=== PATIENT | female | born 1975 | race Caucasian/White ===

== ENCOUNTER 2016-10-19 06:50 | Inpatient (IN) | payer OTHER ==
[~2016-10-19] VITALS: Ht 152.4 cm; Wt 56.2 kg
[~2016-10-19 06:50] MED LIST: BENADRYL ALLERG25 M1 PO; CALCIUM CITRAT950 MG PO; ESCITALOPRAM20 MG PO; LORAZEPAM1 MG PO; OXYCODONE5 M1 PO; PERCOCET 325 MG1 TA2 PO; PRAZOSIN HCL1 MG PO; VITAMIN C500 M3 PO; [UNRECOGNIZED DRUG - CODE] PO
[2016-10-19 07:50] LABS: ABSOLUTE BASOPHIL COUNT 0.1 /CUMM (0.0-0.2); ABSOLUTE EOSINOPHIL COUNT 0.1 /CUMM (0.0-0.7); ABSOLUTE GRANULOCYTE CT 4.1 /CUMM (1.4-6.5); ABSOLUTE LYMPH COUNT 1.9 /CUMM (1.2-3.4); ABSOLUTE MONOCYTE COUNT 0.4 /CUMM (0.10-0.60); BASOPHIL % 0.9 % (0.0-2.0); GRANULOCYTE % 62.6 % (42.2-75.2); HEMATOCRIT 39.4 % (37-47); MEAN CORPUSCULAR HGB 25.7 PG (27.0-31.0); MEAN CORPUSCULAR HGB CONC 32.1 G/DL (33.0-37.0); MEAN PLATELET VOLUME 8.4 FL (7.4-10.4); PLATELET COUNT 252 /CUMM (130-400); RBC DISTRIBUTION WIDTH 17.1 % (11.5-14.5); RED BLOOD CELL CT 4.92 /CUMM (4.20-5.40); WHITE BLOOD CELL COUNT 6.5 /CUMM (4.8-10.8)
--- NOTE | 2016-10-19 08:31 | ED CARDIAC/CP/PALPITATIONS ---
History of Present Illness General Chief Complaint: Chest Pain Stated Complaint: CHEST PAIN, L SHOULDER PAIN AND NECK PAIN Source: patient Exam Limitations: no limitations Vital Signs & Intake/Output Vital Signs & Intake/Output Vital Signs Date Time Temp Pulse Resp B/P B/P Pulse O2 O2 Flow FiO2 Mean Ox Delivery Rate 10/19 0936 97.5 71 16 125/65 98 Room Air 10/19 0840 97.1 70 18 139/68 99 Room Air 10/19 0742 98 Room Air 10/19 0712 98.7 92 18 111/73 100 Room Air Allergies Coded Allergies: NSAIDS (Non-Steroidal Anti-Inflamma (ULCERS 10/19/16) Triage Note: PT TO ED FOR L SIDED CHEST PRESSURE WOKE HER UP OUT OF SLEEP AT APPROX 6 AM, CHEST PAIN/PRESSURE FREE ON ARRIVAL TO ED. L SIDE OF CHEST TENDER TO PALPATION. PT REPORTING PAIN IS RELIEVED "WHEN I SIT WITH MY HEAD BETWEEN MY LEGS". DENIES ASSOCIATED SOB, ACOSTA, NAUSEA. STATING WHEN SHE WOKE UP "I FELT SWEATY". : No Patient currently breastfeeds: No HPI: 41 yo F presented with chest pain which started this morning at 6am and woke her up from sleep. The pain was progressive and radiating towards her left shoulder blade and right jaw but no radiating down the arms. It continued for 45 minutes before she left the house for the hospital. The pain was squeezing in nature and a scale of 8.5/10. She mentions that lying on her back and chest made the pain worse but leaning foward made it better. She did not experience any cough, dysnea or vomitting. The patient feels better now at the hospital and the pain is now 3/10. (AMELIA WALL,[facility]) Reconcile Medications Ascorbic Acid (Vitamin C) 500 MG TAB 1 TAB PO BID SUPPLEMENT (Reported) Calcium Citrate (Unknown Strength) TAB (Unknown Dose) PO BID SUPPLEMENT ( Reported) CHOLECALCIFEROL (VITAMIN D3) (Vitamin D3) 5,000 UNIT TABLET 1 TAB PO BID SUPPLEMENT (Reported) DIPHENHYDRAMINE HCL (Benadryl) 25 MG CAPSULE 1 CAP PO DAILY SUPPLEMENT ( Reported) Escitalopram Oxalate 20 MG TABLET 1.5 TAB PO DAILY MENTAL HEALTH (Reported) Fluoxetine HCl (Prozac) 20 MG CAPSULE 1 CAP PO DAILY DEPRESSION (Reported) Lorazepam 1 MG TABLET 4 TAB PO QHS ANXIETY/SLEEP (Reported) Lorazepam 1 MG TABLET 2 TAB PO TID ANXIETY (Reported) OXYCODONE HCL (Oxycodone) 5 MG CAP 1-2 TAB PO Q6P PRN PAIN OXYCODONE HCL/ACETAMINOPHEN (Percocet 5-325 MG Tablet) 325 MG/5 MG TAB 1 TAB PO Q8H PRN PAIN (Reported) Tramadol HCl 50 MG TABLET 1 TAB PO Q6P PRN PAIN (Reported) Zolpidem Tartrate 5 MG TABLET 1 TAB PO QPMP SLEEP (Reported) Zolpidem Tartrate 10 MG TABLET 1 TAB PO QPMP SLEEP (Reported) Triage Nurses Notes Reviewed? yes (PAU WALL,OSCAR Wharton) Past History Travel History Traveled to [place] past 21 day No Medical History Any Pertinent Medical History? 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 No (SAHYY CISNEROS MD) Review of Systems Review of Systems Constitutional: Reports: no symptoms. EENTM: Reports: no symptoms. Respiratory: Reports: no symptoms. Cardiovascular: Reports: chest pain. GI: Reports: diarrhea. Genitourinary: Reports: no symptoms. Musculoskeletal: Reports: neck pain. Skin: Reports: no symptoms. Neurological/Psychological: Reports: anxiety. Hematologic/Endocrine: Reports: no symptoms. Immunologic/Allergic: Reports: no symptoms. All Other Systems: Reviewed and Negative (SHAYY CISNEROS MD) Physical Exam Physical Exam General Appearance: well developed/nourished, alert, awake, anxious, mild distress Head: atraumatic, normal appearance Eyes: Bilateral: normal appearance. Ears, Nose, Throat: normal ENT inspection Neck: normal inspection Respiratory: normal breath sounds Cardiovascular: regular rate/rhythm Gastrointestinal: soft, non-tender, visible scars from previous surgery Back: normal inspection Extremities: normal inspection Neurologic/Psych: awake, alert Skin: normal color, warm/dry (SHAYY CISNEROS MD) Core Measures ACS in differential dx? Yes ASA ordered for poss ACS? Yes-ordered Severe Sepsis Present: No Septic Shock Present: No (PAU WALL,[facility]CAR Wharton) Progress Differential Diagnosis: AMI, aortic dissection, hyperthyroid, musculoskeletal pain, pneumothorax, pulmonary embolism, unstable angina Plan of Care: Orders Procedure Date/time Status Add-on Test (ER Only) 10/19 08 Active Add-on Test (ER Only) 10/19 08 Active Add-on Test (ER Only) 10/19 734 Active URINE DRUGS OF ABUSE 10/19 734 Active URINE 10/19 734 Active URINALYSIS 10/19 734 Active HUMAN BETA HCG SCREEN 10/20 731 Complete ETHANOL 10/20 731 Complete D-DIMER 10/20 731 Complete TROPONIN LEVEL 10/20 727 Complete COMPREHENSIVE METABOLIC PANEL 10/20 727 Complete CBC WITHOUT DIFFERENTIAL 10/20 727 Complete EKG 10/19 0652 Active Laboratory Tests 10/19/16 0732: Anion Gap 8, Estimated GFR > 60, BUN/Creatinine Ratio 10.0, Glucose 101 H, Calcium 9.9, Total Bilirubin 0.4, AST 20, ALT 37, Alkaline Phosphatase 80, Troponin I 0.13 *H, Total Protein 7.5, Albumin 4.8, Globulin 2.7, Albumin/ Globulin Ratio 1.8, Total Beta HCG NEGATIVE, D-Dimer High Sensitivty < 200, CBC w Diff NO MAN DIFF REQ, RBC 4.92, MCV 80.0 L, MCH 25.7 L, RDW 17.1 H, MPV 8.4 , Gran % 62.6, Lymphocytes % 28.7, Monocytes % 5.8, Eosinophils % 2.0, Basophils % 0.9, Absolute Granulocytes 4.1, Absolute Lymphocytes 1.9, Absolute Monocytes 0.4, Absolute Eosinophils 0.1, Absolute Basophils 0.1, PUBS MCHC 32.1 L, Serum Alcohol < 10.0 Diagnostic Imaging: Viewed by Me: Radiology Read, CT Scan. Discussed w/RAD: Radiology Read, CT Scan. Initial ED EKG: Sinus Tachycardia without any ST changes Rhythm Strip: normal sinus rhythm (SHAYY CISNEROS MD) Radiology Impression: PATIENT: RM GARCIA PRESENT AGE: 41 PATIENT ACCOUNT NO: [id number] : 75 LOCATION: [facility] ORDERING PHYSICIAN: SHAYY CISNEROS MD SERVICE DATE: 10/19/16 EXAM TYPE : CAT - CTA CHEST-PULMONARY EMBOLISM EXAMINATION: CTA CHEST PE STUDY CLINICAL INFORMATION: CHEST PAIN COMPARISON: No pertinent prior studies are available for comparison. TECHNIQUE: Prior to contrast administration, noncontrast localization images were obtained. After the administration of 50 mL of Omnipaque nonionic IV contrast, contiguous thin slice helical images were obtained through the thorax. Reformatted MIP images in the coronal and sagittal planes were obtained at the acquisition workstation. DLP: 414 mGy-cm. FINDINGS: The bolus timing on this study was acceptable for visualization of the pulmonary arterial tree. There are no intraluminal pulmonary arterial filling defects present to suggest pulmonary embolism. The lungs are clear. No focal consolidation or infiltrate identified. Incidental tiny subpleural 3 mm pulmonary nodule seen in the anterior aspect of the right upper lobe on axial image 15/62. No significant hilar or mediastinal adenopathy. There is no evidence of pleural effusion or pneumothorax. The heart is normal in size. No evidence of ventricular septal bowing or right heart strain. The mediastinum and great vessels are normal. There is no pericardial effusion or pericardial thickening. Limited evaluation of the upper abdominal viscera demonstrates patient be status post gastric bypass surgery and cholecystectomy. IMPRESSION: No evidence for central pulmonary emboli. No focal airspace disease. Tiny 3 mm subpleural pulmonary nodule incidentally noted. According to the UPDATED 2017 Fleischner Society recommendations, the advised follow-up imaging for solid nodules < 6 mm is: LOW RISK PATIENT: No routine follow-up. HIGH RISK PATIENT: Optional CT at 12 months. VTE: Negative DICTATED BY: SLY CHINO MD DATE /TIME DICTATED:10/19/16951 DERRICK BOAT RUNNER:DAYA DATE/TIME TRANSCRIBED: 10/19/16951 CONFIDENTIAL, DO NOT COPY WITHOUT APPROPRIATE AUTHORIZATION. < Electronically signed in Other Vendor System> SIGNED BY: SLY CHINO MD 10/19/16958 CXR Impression: PATIENT: RM GARCIA PRESENT AGE: 41 PATIENT ACCOUNT NO: [id number] : 75 LOCATION: [facility] ORDERING PHYSICIAN: SHAYY CISNEROS MD SERVICE DATE: 10/19/16 EXAM TYPE: RAD - XRY-PORTABLE CHEST XRAY EXAMINATION: XR PORTABLE CHEST CLINICAL INFORMATION: Chest pain COMPARISON: 11/29/2008 TECHNIQUE: Portable portable AP 85 degree upright view of the chest was obtained. FINDINGS: Cardiac and mediastinal silhouettes are normal in appearance. The lungs and pleural spaces are clear. IMPRESSION: Unremarkable examination. DICTATED BY: TAJ GUTIERREZ MD DATE/TIME DICTATED:10/19/16919 DERRICK BOAT RUNNER:DAYA DATE/TIME TRANSCRIBED:919 CONFIDENTIAL, DO NOT COPY WITHOUT APPROPRIATE AUTHORIZATION. < Electronically signed in Other Vendor System> SIGNED BY: TAJ GUTIERREZ MD 10/19/16923 (PAU WALL,OSCAR Wharton) Departure Departure Referrals: LAURA MORENO MD (PCP/Family) Departure Forms: Customer Survey General Discharge Information (SHAYY CISNEROS MD) Departure Disposition: STILL A PATIENT Condition: Guarded Clinical Impression Primary Impression: ACS (acute coronary syndrome) Admission Note Spoke With: FERNANDO CHACON MD, V. Documentation of Exam: Documentation of any treatments & extenuating circumstances including Concerns Regarding Discharge (functional status, medication knowledge or non-compliance, living conditions, etc.) that warrant an admission rather than observation: [ TELE ADMISSION, SERIAL ENZYMES, CARDIOLOGY EVAL, MAY NEED CENTRAL STERILE SUPPLY TECHNICIAN IF TROP RAISES AND/OR PAIN COMES BACK] Resident Co-Sign Statement Statement: ED Attending supervision documentation- [X] I saw and evaluated the patient. I have also reviewed all the pertinent lab results and diagnostic results. I agree with the findings and the plan of care as documented in the Resident's documentation. [X] I have reviewed the ED Record and agree with the Resident's documentation. [] Additions or exceptions (if any) to the Resident's note and plan are summarized below: [Patient was awoken with substernal sharp chest pain. Pubs felt that it was an anxiety attack she has been out of her lorazepam for 2 days. Patient states that she began to feel little bit better but still had chest pain so came into the emergency department. Shortly after arrival to the emergency department the chest pain went away however she still feels slightly short of breath. Patient does have a positive troponin. Her EKG shows sinus tachycardia with no ST-T changes. Her CT and she was negative for PE. Patient will be admitted to the hospital for further evaluation.] (PAU WALL,OSCAR Wharton) Critical Care Note Critical Care Note Critical Care Time: non-applicable (PAU WALL,OSCAR Wharton)
--- NOTE | 2016-10-19 09:24 | RADIOLOGY REPORT ---
EXAMINATION: XR PORTABLE CHEST CLINICAL INFORMATION: Chest pain COMPARISON: 11/29/2008 TECHNIQUE: Portable portable AP 85 degree upright view of the chest was obtained. FINDINGS: Cardiac and mediastinal silhouettes are normal in appearance. The lungs and pleural spaces are clear. IMPRESSION: Unremarkable examination.
[2016-10-19] MEDS ORDERED: TRAMADOL HCL50 M1 PO (09:51)
[2016-10-19] MEDS ORDERED: LORAZEPAM1 M1 PO (09:52)
[2016-10-19] MEDS ORDERED: ZOLPIDEM TARTRA10 M1 PO (09:53)
[2016-10-19] MEDS ORDERED: ZOLPIDEM TARTRAT5 M1 PO (09:53)
[2016-10-19] MEDS ORDERED: PROZAC20 M2 PO (09:54)
--- NOTE | 2016-10-19 09:59 | CT SCAN REPORT ---
EXAMINATION: CTA CHEST PE STUDY CLINICAL INFORMATION: CHEST PAIN COMPARISON: No pertinent prior studies are available for comparison. TECHNIQUE: Prior to contrast administration, noncontrast localization images were obtained. After the administration of 50 mL of Omnipaque nonionic IV contrast, contiguous thin slice helical images were obtained through the thorax. Reformatted MIP images in the coronal and sagittal planes were obtained at the acquisition workstation. DLP: 414 mGy-cm. FINDINGS: The bolus timing on this study was acceptable for visualization of the pulmonary arterial tree. There are no intraluminal pulmonary arterial filling defects present to suggest pulmonary embolism. The lungs are clear. No focal consolidation or infiltrate identified. Incidental tiny subpleural 3 mm pulmonary nodule seen in the anterior aspect of the right upper lobe on axial image 15/62. No significant hilar or mediastinal adenopathy. There is no evidence of pleural effusion or pneumothorax. The heart is normal in size. No evidence of ventricular septal bowing or right heart strain. The mediastinum and great vessels are normal. There is no pericardial effusion or pericardial thickening. Limited evaluation of the upper abdominal viscera demonstrates patient be status post gastric bypass surgery and cholecystectomy. IMPRESSION: No evidence for central pulmonary emboli. No focal airspace disease. Tiny 3 mm subpleural pulmonary nodule incidentally noted. According to the UPDATED 2017 Fleischner Society recommendations, the advised follow-up imaging for solid nodules < 6 mm is: LOW RISK PATIENT: No routine follow-up. HIGH RISK PATIENT: Optional CT at 12 months. VTE: Negative
[2016-10-19 10:53] LABS: PT 12.2 SEC (9.4-12.5); PTT 31 SEC (25-37)
--- NOTE | 2016-10-19 13:27 | ECHOCARDIOGRAM REPORT ---
RM GARCIA Age: 41 : 1975 Gender: F Exam Date: 10/19/2016 11:20 Exam Location: ER Ht (in): 60 Wt (lb): 155 BSA: 1.75 BP: 125 / 65 Ordering Physician: ALEXEI DENT MD Referring Physician: ALEXEI DENT MD Technologist: Agustina Saldaña RDCS Room Number: ER#3 Indications: CHEST PAIN Rhythm: Sinus Technical Quality: Good FINDINGS Left Ventricle Normal left ventricular size, wall thickness and systolic function with no obvious regional wall motion abnormalities. Normal left ventricular diastolic filling pattern for age. The ejection fraction is visually estimated at >65 %. Right Ventricle The right ventricle is normal in size and function. Right Atrium The right atrium is normal in size. Left Atrium The left atrium is normal in size. The interatrial septum is intact. Mitral Valve The mitral valve is normal in structure and function. There is trace mitral regurgitation. Aortic Valve Structurally normal aortic valve without significant sclerosis or stenosis. There is no aortic regurgitation. Tricuspid Valve The tricuspid valve is normal in structure and function. There is trace tricuspid regurgitation. Pulmonary artery systolic pressure is normal. Pulmonic Valve Structurally normal pulmonic valve. There is no pulmonic regurgitation. Pericardium Normal pericardium without effusion. No pleural effusion. Great Vessels Normal aortic root dimension. The aortic arch and great vessels are well seen and are normal. CONCLUSIONS No significant chamber abnormalities. No significant valve abnormalities. Normal transthoracic echocardiogram. Physiologic valvular regurgitation. Alexei Dent M.D. (Electronically Signed) Final Date: 19 October 2016 13:26 MEASUREMENTS (Male / Female) Normal Values 2D ECHO LV Diastolic Diameter PLAX 4.3 cm 4.2 - 5.9 / 3.9 - 5.3 cm LV Systolic Diameter PLAX 2.5 cm 2.1 - 4.0 cm LV Fractional Shortening PLAX 41.9 % 25 - 46 % LV Ejection Fraction 2D Teich 73.1 % IVS Diastolic Thickness 0.7 cm LVPW Diastolic Thickness 0.7 cm LV Relative Wall Thickness 0.3 RV Internal Dim ED PLAX 2.3 cm 1.9 - 3.8 cm LVOT Diameter 1.9 cm Aortic Root Diameter 2.8 cm LA Systolic Diameter LX 3.2 cm 3.0 - 4.0 / 2.7 - 3.8 cm LA Volume 25.0 cm 18 - 58 / 22 - 52 cm Ascending Aorta Diameter 2.6 cm DOPPLER AV Peak Velocity 145.0 cm/s AV Peak Gradient 8.4 mmHg AV Mean Velocity 99.1 cm/s AV Mean Gradient 5.0 mmHg AV Velocity Time Integral 29.0 cm LVOT Peak Velocity 114.0 cm/s LVOT Peak Gradient 5.2 mmHg LVOT Mean Velocity 77.0 cm/s LVOT Mean Gradient 3.0 mmHg LVOT Velocity Time Integral 22.3 cm LVOT Stroke Volume 63.2 cm AV Area Cont Eq vti 2.2 cm AV Area Cont Eq pk 2.2 cm MV Peak Velocity 108.0 cm/s MV Peak Gradient 4.7 mmHg MV Mean Velocity 63.5 cm/s MV Mean Gradient 2.0 mmHg Mitral E Point Velocity 80.9 cm/s Mitral A Point Velocity 62.2 cm/s Mitral E to A Ratio 1.3 MV PHT Velocity 114.0 cm/s MV Deceleration Hoke 485.0 cm/s MV Pressure Half Time 70.5 ms MV Area PHT 3.1 cm MV Deceleration Time 180.0 ms TR Peak Velocity 237.0 cm/s TR Peak Gradient 22.5 mmHg Right Atrial Pressure 5.0 mmHg Pulmonary Artery Systolic Pressu 27.5 mmHg Right Ventricular Systolic Press 27.5 mmHg PV Peak Velocity 132.0 cm/s PV Peak Gradient 7.0 mmHg PV Mean Velocity 85.9 cm/s PV Mean Gradient 4.0 mmHg PV Velocity Time Integral 27.5 cm LV E' Lateral Velocity 15.0 cm/s Mitral E to LV E' Lateral Ratio 5.4 LV E' Septal Velocity 9.7 cm/s Mitral E to LV E' Septal Ratio 8.4
--- NOTE | 2016-10-19 13:37 | History & Physical ---
SHANE WALL,[facility] 10/19/16 3327: General Information and HPI MD Statement: I have seen and personally examined RM CASTILLO and documented this H&P. The patient is a 41 year old F who presented with a patient stated chief complaint of [chest pain]. Source of Information: patient Exam Limitations: no limitations History of Present Illness: Ms. 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 She presents with sudden onset of exertional chest pain this morning at 6 AM. She was awakened by chest pain that was retrosternal this morning at 6 AM. The chest pain was squeezing in nature and felt like a muscle spasm and was 8-9/10 intensity. The chest pain radiated to her left shoulder blade and also to her right neck and right ear. The pain was associated with increased sweating, but she denied lightheadedness, palpitations, shortness of breath, nausea or vomiting. Her chest pain lasted for about 15 minutes and was aggravated by lying flat in bed but had no relieving factors. Her attempts to relieve the palpitations and chest pain by maneuvers that help her panic attacks, including putting her head between her knees, were unsuccessful. Her chest pain acutally started while she was driving herself to the ER, and by the time she arrived the ER, she was free of chest pain without needing any medications. She also had a headache that started after the chest pain subsided in the ER, however she denies blurring of vision and weakness or numbness in any limbs. She states that she has had some episode of palpitations and chest pain in the past associated with anxiety/panic attacks but none of them was this severe. She denies cough, wheeze, fevers, chills or malaise. She has noted a low appetite for the past couple of weeks and has nonbloody diarrhea with 2-3 episodes of loose stools daily for the past 1 week. She denies dysuria or hematuria. She states that she has been under increased stress over the past few weeks from her job and also an impending divorce this month. In the ER she was found to be in normal sinus rhythm. However, she had an elevated troponin to 0.13 and was started on IV heparin drip and given a 325mg dose of aspirin. Allergies/Medications Allergies: Coded Allergies: NSAIDS (Non-Steroidal Anti-Inflamma (ULCERS 10/19/16) Home Med list Ascorbic Acid (Vitamin C) 500 MG TAB 1 TAB PO BID SUPPLEMENT (Reported) Aspirin (Aspirin*) 81 MG TAB.CHEW 81 MG PO DAILY heart health Atorvastatin Calcium 80 MG TABLET 80 MG PO DAILY hyperlipidemia Calcium Citrate (Unknown Strength) TAB (Unknown Dose) PO BID SUPPLEMENT ( Reported) CHOLECALCIFEROL (VITAMIN D3) (Vitamin D3) 5,000 UNIT TABLET 1 TAB PO BID SUPPLEMENT (Reported) DIPHENHYDRAMINE HCL (Benadryl) 25 MG CAPSULE 1 CAP PO DAILY SUPPLEMENT ( Reported) Fluoxetine HCl (Prozac) 20 MG CAPSULE 1 CAP PO DAILY DEPRESSION (Reported) Heparin Sod,Porcine/0.9 % NaCl (Heparin-Ns 2,500 Units/500 Ml) 2,500 UNIT/500 ML (5 UNIT/ML) IV.SOLN 500 500 IV Q24 [facility] Lorazepam 1 MG TABLET 4 TAB PO QHS ANXIETY/SLEEP (Reported) Metoprolol Succinate 25 MG TAB 6.25 MG PO BID bp Ticagrelor (Brilinta) 90 MG TABLET 90 MG PO 0600 [facility] Tramadol HCl 50 MG TABLET 1 TAB PO Q6P PRN PAIN (Reported) Zolpidem Tartrate 5 MG TABLET 1 TAB PO QPMP SLEEP (Reported) Zolpidem Tartrate 10 MG TABLET 1 TAB PO QPMP SLEEP (Reported) Past History Travel History Traveled to [place] past 21 day No Medical History Neurological: NONE EENT: NONE Cardiovascular: NONE Respiratory: NONE Gastrointestinal: GASTRIC BYPASS WITH MALABSORPTION Cholecystectomy Hepatic: NONE Renal: NONE Musculoskeletal: HIP DYSPLASIA Psychiatric: anxiety, PTSD PAINC ATTACKS Endocrine: GESTATIONAL DIABETES Blood Disorders: B12 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 Home Who Do You Live With? parent (mother) Services at Home: None Primary Language: Bengali Smoking Status: Former Smoker (1 PPD from 14 yrs to 35 yrs) ETOH Use: occasional use Illicit Drug Use: denies illicit drug use Functional Ability ADLs Independent: dressing, eating, toileting, bathing. Ambulation: independent IADLs Independent: shopping, housework, finances, food prep, telephone, transportation , medication admin. Employment History Employment Employed Profession/Employer [employer] Review of Systems Review of Systems Constitutional: Reports: see HPI. Denies: chills, fever, malaise. Exam & Diagnostic Data Last 24 Hrs of Vital Signs/I&O Vital Signs Date Time Temp Pulse Resp B/P B/P Pulse O2 O2 Flow FiO2 Mean Ox Delivery Rate 10/19 1403 98.3 82 20 146/78 97 Room Air 10/19 1200 97.8 74 16 146/79 98 Room Air 10/19 0936 97.5 71 16 125/65 98 Room Air 10/19 0840 97.1 70 18 139/68 99 Room Air 10/19 0742 98 Room Air 10/19 0712 98.7 92 18 111/73 100 Room Air Intake & Output 10/19 1600 10/19 0800 10/19 0000 Intake Total 0 Output Total Balance 0 Intake, Oral 0 Patient 155 lb Weight Weight Reported by Patient Measurement Method Physical Exam General Appearance Alert, Oriented X3, Cooperative, No Acute Distress Skin No Rashes Skin Temp/Moisture Exam: Warm/Dry Sepsis Skin Exam (color): Normal for Ethnicity HEENT Atraumatic, PERRLA, EOMI, Mucous Membr. moist/pink Neck Supple, No JVD, No thryomegaly, +2 Carotid Pulse wo Bruit Lymphatic Cervical nl Cardiovascular Regular Rate, Normal S1, Normal S2, No Murmurs Lungs Clear to Auscultation, Normal Air Movement Abdomen Normal Bowel Sounds, Soft, No Tenderness, No Hepatospenomegaly Neurological Normal Speech, Strength at 5/5 X4 Ext, Normal Tone Extremities No Edema, Normal Pulses, No Tenderness/Swelling Vascular Normal Pulses, Pulses Symmetrical (normal dorsalis pedis) Diagnostic Data EKG Results Normal sinus rhythm heart rate 85 bpm. QTC 447 ms CXR Results Clear lung nelson. No cardiomegaly Assessment/Plan Assessment: Ms. Castillo is a 41-year-old woman with a past medical history of anxiety, PTSD and panic attacks, malabsorption from bariatric surgery with Donal-en-Y 2011 , hip dysplasia on chronic pain medication, and vitamin B-12 deficiency (Her history of GERD, STEVAN, gestational diabetes all resolved after weight loss surgery). She presents with sudden onset of retrosternal chest pain this morning at 6 AM that lasted about 15 minutes and spontaneously resolved without any medical intervention. She does not have a significant family history of cardiac disease or prominent risk factors (although she was morbidly obese prior to her bariatric surgery, and also had gestational diabetes). Her EKG showed normal sinus rhythm and a CT angiogram of her chest showed no pulmonary embolism. She was started on IV heparin drip in the ER because of suspicion of an acute coronary syndrome. Her echocardiogram revealed no wall motion abnormalities. Despite her unremarkable cardiac family history, her typical symptomatology coupled with a troponin leak of 0.13 is concerning for an acute coronary syndrome or non-ST elevation myocardial infarction, so she would need to be admitted on telemetry and evaluated and treated for such. The patient will continue her home medications for anxiety and panic attacks. We will trend her troponins and EKGs and monitor her for recurrence of chest pain. We will keep her nothing by mouth after midnight in case she needs a cardiac catheterization in the morning. Problem list 1. Chest pain concerning for acute coronary syndrome/NSTEMI 2. History of panic attacks 3. Anxiety 4. History of malabsorption status post gastric Donal-en-Y surgery 5. Hip dysplasia with chronic hip pain Plan 1. Chest pain concerning for acute coronary syndrome/NSTEMI * Admit to telemetry * Serial EKGs and troponins 3 * Follow-up official echocardiogram report * Continue IV heparin drip as per ACS protocol * Check and on for serum magnesium, TSH, free T4, hemoglobin A1c * Cardiology recommendations appreciated * Loading dose of brillinta 180 mg stat and then 90 mg twice a day * Continue aspirin 81 mg daily (patient received aspirin 325 mg once in the ER) * Start low dose PO metoprolol 6.25 mg BID * Check fasting lipid profile tomorrow morning * Start high-intensity Lipitor 80 mg daily in the morning after lipid profile * Monitor vital signs closely and watch for recurrence of chest pain * Start sublingual nitroglycerin if chest pains reocurrs * NPO from midnight for possible cardiac cath in the morning 2. History of panic attacks * Start lorazepam 2 mg 3 times a day when necessary for anxiety or panic attacks * Continue by mouth Prozac 20 mg daily for anxiety 3. Anxiety * Start lorazepam 2 mg 3 times a day when necessary for anxiety or panic attacks * Continue by mouth Prozac 20 mg daily for anxiety 4. History of malabsorption status post gastric Donal-en-Y surgery * Continue supplementation with by mouth vitamins C, by mouth vitamin D, and by mouth multivitamins with B12 5. Hip dysplasia with chronic hip pain * Start by mouth Tylenol 650 mg every 6 hrs when necessary for mild pain. By mouth Tramadol 50 mg every 6 hrs when necessary for moderate pain 6. DVT prophylaxis * IV heparin drip 7. CODE STATUS * Full code As Ranked By This Provider Problem List: 1. ACS (acute coronary syndrome) Core Measures/Miscellaneous Acute Coronary Syndrome ACS Diagnosis: Yes Date of most recent Echo 10/19/16 Last Known EF % 65 CASSY/ARB For EF <40% No (EF >40%) No CASSY/ARB d/t Medical Contraindication ASA W/I 24hr of admit Yes Beta-Roxanne W/I 24hrs Yes LDL assessed W/I 24 hrs Yes Currently on Statin No No Statin d/t LIPID PROFILE PENDING Comment RECEIVED STATIN on admission Cerebrovascular Accident CVA/TIA Diagnosis: No Congestive Heart Failure CHF Diagnosis: No VTE (View Protocol) VTE Risk Factors: Acute medical illness, Age > 40 No [facility] VTE prophylaxis d/t: No contraindications No VTE Pharm Prophylaxis d/t: No contraindications VTE Diagnosis: No VTE Type: NONE VTE Confirmed by (Test): NONE Sepsis (View Protocol) Severe Sepsis Present: No Septic Shock Septic Shock Present: No Miscellaneous Documentation Attending Case Discussed With: FERNANDO CHACON MD, V. Primary Care Physician: LAURA MORENO MD Patient sees these Specialists None Level of Patient Care: Telemetry FERNANDO CHACON MD 10/19/16 1428: Attending MD Review Statement Attending Statement Attending MD Statement: examined this patient, discuss w/resident/PA/CAUSTIC PUMP OPERATOR, agreed w/resident/PA/CAUSTIC PUMP OPERATOR Attending Assessment/Plan: This patient is a 41-year-old female who has been generally healthy except for obesity in the past which resolved after gastric bypass surgery. She has significant anxiety and panic attacks. She does not have hypertension, diabetes , family history of heart disease, dyslipidemia. She is a lifelong nonsmoker and nondrinker. The patient describes occasional midsternal chest pain not necessarily exertional. These tend to be fairly brief. This morning the patient developed mid to left-sided chest pressure at approximately 6 AM which showed a awakened her from sleep. This lasted 45 minutes and did not resolve so she came to the hospital where her discomfort gradually improved and finally disappeared. Her EKG was unremarkable but her initial troponin was 0.13. Her echocardiogram has already been done and is within normal limits with no regional wall motion abnormalities. Her physical examination was essentially completely normal. The rest of her routine labs are normal. Lipid profile was not done but will be ordered for the a.m. The patient is a 41-year-old female with minimal risk factors who has developed chest pain that sounded fairly typical. She did not have any EKG changes or any wall motion abnormalities on her echo but her initial troponin was elevated at 0.13. It appears that she is having a non-ST elevation myocardial infarction. We will of course trend her troponins and EKGs and depending on the results consider her for further evaluation including cardiac catheterization. For now we will put her on usual cardiac regimen including full anticoagulation. I recommend loading with Brilinta and adding a small dose of metoprolol for completeness.
[2016-10-19 14:03] VITALS: BP 146/78
--- NOTE | 2016-10-19 16:27 | Admission Certification ---
Admission Certification Certification Statement - As attending physician, I certify that at the time of - admission, based on clinical presentation, severity of - symptoms, need for further diagnostic testing and - therapeutic interventions, and risk of adverse outcomes - without in-hospital treatment, in my clinical assessment, - this patient requires an acute hospital stay for a minimum - of two nights or longer. I have also considered psychsocial - factors such as support system, advanced age, financial - issues, cognitive issues, and failed out-patient treatments, - past re-admission history, safety of patient, and lack of - compliance as applicable. Specific rationale supporting this admission is: Chest pain and positive troponin
[2016-10-19 16:31] VITALS: BP 130/78
[2016-10-19 20:09] LABS: PTT 67 SEC (25-37)
[2016-10-19 22:21] VITALS: BP 98/66
--- NOTE | 2016-10-19 22:58 | Discharge Summary ---
Visit Information Visit Dates Admission Date: 10/19/16 Discharge Date: 10/20/2016 Hospital Course Course Attending Physician: OSWALDO WALL,FERNANDO Feliciano Primary Care Physician: JOSH WALL,[facility] Course: Ms. Castillo is a 41-year-old woman with a past medical history of anxiety, PTSD and panic attacks, malabsorption from bariatric surgery with Donal-en-Y gastric bypass in 2011, hip dysplasia on chronic pain medication, and vitamin B- 12 deficiency (Her history of GERD, STEVAN, gestational diabetes all resolved after her weight loss surgery). She presented with sudden onset of exertional chest pain on the morning of presentation at 6 AM. She was awakened by retrosternal chest pain on the morning of presentation at 6 AM. The chest pain was squeezing in nature and felt like a muscle spasm and was 8-9/10 intensity. The chest pain radiated to her left shoulder blade and to her right neck and right ear and lasted about 15 minutes intensity with aggravation by lying flat. The pain was associated with increased sweating but she denied lightheadedness, palpitations, shortness of breath, nausea or vomiting. In the ER she was free of chest pain without any medications administered. She also had a headache that started after the chest pain subsided in the ER, however she denied blurring of vision and weakness or numbness in any limbs. She had experienced previous episodes of palpitations during her anxiety/panic attacks in the past, but none of them what this severe. Vital signs on presentation in the ER: Temp 98.7 F, P 92 bpm, RR 18/min, BP 111/ 73 mmhg, PO2 100% on room air. Physical exam in the ER was as follows: General Appearance Alert, Oriented X3, Cooperative, No Acute Distress Skin No Rashes Skin Temp/Moisture Exam: Warm/Dry Sepsis Skin Exam (color): Normal for Ethnicity HEENT Atraumatic, PERRLA, EOMI, Mucous Membr. moist/pink Neck Supple, No JVD, No thryomegaly, +2 Carotid Pulse wo Bruit Lymphatic Cervical nl Cardiovascular Regular Rate, Normal S1, Normal S2, No Murmurs Lungs Clear to Auscultation, Normal Air Movement Abdomen Normal Bowel Sounds, Soft, No Tenderness, No Hepatospenomegaly Neurological Normal Speech, Strength at 5/5 X4 Ext, Normal Tone Extremities No Edema, Normal Pulses, No Tenderness/Swelling Vascular Normal Pulses, Pulses Symmetrical (normal dorsalis pedis) In the ER she was found to be in normal sinus rhythm. However she had an elevated troponin to 0.13. A CT angiogram of her chest showed no pulmonary embolus. She was admitted to the telemetry service for chest pain and a NSTEMI. She received PO aspirin 325 mg stat. She was started on an IV heparin drip. Her echocardiogram revealed no wall motion abnormalities. She was given Brillinta loading dose and continued on 90 mg BID. She was also continued on aspirin 81 mg daily. She was also started on metoprolol 6.25 mg daily. Her home medications for anxiety and panic attacks, prozac and ativan as needed were continued. Her troponin karis to 3.63 ng/ml and trended down to 1.58. Her symptoms resolved by morning. Patient is being transferred to [facility] for cardiac catheterization. Problem list 1. Acute coronary syndrome/NSTEMI 2. History of panic attacks 3. Anxiety 4. History of malabsorption status post gastric Donal-en-Y surgery 5. Hip dysplasia with chronic hip pain Allergies: Coded Allergies: NSAIDS (Non-Steroidal Anti-Inflamma (ULCERS 10/19/16) Disposition Summary Disposition Principal Diagnosis: 1. Acute coronary syndrome/NSTEMI Additional Diagnosis: 2. History of panic attacks 3. Anxiety 4. History of malabsorption status post gastric Donal-en-Y surgery 5. Hip dysplasia with chronic hip pain Discharge Disposition: other [facility] hospital Discharge Instructions General Discharge Information Code Status: Full Code Patient's Diet: heart healthy Patient's Activity: as tolerated Follow-Up Instructions/Appts: Please f/u with your malt loader after discharge. Please continue to take the medications as prescribed. Medications at Discharge Discharge Medications: Continue taking these medications: Lorazepam (Lorazepam) 1 MG TABLET 4 Tablet ORAL TAKE AT BEDTIME Qty = 180 Comments: PT REPORTS MED IS WRITTEN TO TAKE 1 TAB FOUR TIMES & 2 TABS QHS; PT REPORTS TAKING 4 TABS QHS AND 2 TABS PRN PANIC ATTACKS/ANXIETY Ascorbic Acid (Vitamin C) 500 MG TAB 1 Tablet ORAL TWICE DAILY CHOLECALCIFEROL (VITAMIN D3) (Vitamin D3) 5,000 UNIT TABLET 1 Tablet ORAL TWICE DAILY Calcium Citrate (Calcium Citrate) (Unknown Strength) TAB Unknown Dose ORAL TWICE DAILY DIPHENHYDRAMINE HCL (Benadryl) 25 MG CAPSULE 1 Capsule ORAL DAILY Tramadol HCl (Tramadol HCl) 50 MG TABLET 1 Tablet ORAL EVERY SIX HOURS NEEDED as needed for PAIN Qty = 120 Comments: Last Taken:09/20/16 Time:6:28A.M Zolpidem Tartrate (Zolpidem Tartrate) 5 MG TABLET 1 Tablet ORAL Every night as needed Qty = 30 Comments: Last Taken:NOT GIVEN THIS ADMISSION Time: Zolpidem Tartrate (Zolpidem Tartrate) 10 MG TABLET 1 Tablet ORAL Every night as needed Qty = 30 Comments: NOT GIVEN THIS ADMISSION Fluoxetine HCl (Prozac) 20 MG CAPSULE 1 Capsule ORAL DAILY Comments: Last Taken:10/20/16 Time:9:26A.M Start taking the following new medications: Ticagrelor (Brilinta) 90 MG TABLET 90 Milligram ORAL 0600 Days = 30 No Refills Comments: Last Taken:10/20/16 Time:6:19A.M Atorvastatin Calcium (Atorvastatin Calcium) 80 MG TABLET 80 Milligram ORAL DAILY Days = 30 No Refills Comments: Last Taken:10/20/16 Time:9:28A.M Metoprolol Succinate (Metoprolol Succinate) 25 MG TAB 6.25 Milligram ORAL TWICE DAILY Days = 30 No Refills Comments: Last Taken:10/20/16 Time:9:28A.M Aspirin (Aspirin*) 81 MG TAB.CHEW 81 Milligram ORAL DAILY Days = 30 No Refills Comments: Last Taken:10/20/16 Time:9:28A.M Heparin Sod,Porcine/0.9 % NaCl (Heparin-Ns 2,500 Units/500 Ml) 2,500 UNIT/500 ML (5 UNIT/ML) IV.SOLN 500 500 INTRAVEN EVERY 24 HOURS Days = 7 No Refills Comments: Last Taken:10/20/16 Time: Copies To: FERNANDO DENT MD, V. Attending MD Review Statement Documenting Attending: FERNANDO DENT MD, V. Other Findings: I agree with the summary as dictated by the resident. Shari Dent M.D.
--- NOTE | 2016-10-20 06:49 | PN- Housestaff ---
Subjective Follow-up For: 1. Chest pain might be due to acute coronary syndrome/NSTEMI Review of Systems Constitutional: Denies: no symptoms. Objective Last 24 Hrs of Vital Signs/I&O Vital Signs Date Time Temp Pulse Resp B/P B/P Pulse O2 O2 Flow FiO2 Mean Ox Delivery Rate 10/20 09 77 116/70 10/20 0720 97.8 77 18 102/78 98 Room Air 10/19 2221 98.3 66 16 98/66 98 Room Air 10/19 2215 68 98/66 Intake & Output 10/20 1600 10/20 0800 10/20 0000 Intake Total Output Total Balance Patient 124 lb Weight Weight Reported by Patient Measurement Method Physical Exam General Appearance: Alert, Oriented X3, Cooperative, No Acute Distress Assessment/Plan Assessment: Ms. Castillo is a 41-year-old woman with a past medical history of anxiety, PTSD and panic attacks, she presented yesterday to the ED with sudden onset of chest pain which lasted for around an hour in the morning . It was aggravated by lying flat, on admission to the ER shows found to be on normal sinus rhythm and had high troponin of 0,13, which trended high , her second troponin was 3.62.A CT angiogram of her chest showed no pulmonary embolus. She was admitted to the telemetry service for chest pain and a NSTEMI. 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 ACS (acute coronary syndrome) 2. History of panic attacks 3. History of Donal-en-Y gastric bypass 4. Panic attack 5. Hip dysplasia Pain Ratin Pain Location: n/a Pain Goal: Remain pain free Pain Plan: acetaminophen tramadol Tomorrow's Labs & Rationales: no labs as the patient is being transferred for cardiac cath DVT/Prophylaxis: pharmacological
[2016-10-20 07:20] VITALS: BP 102/78
[2016-10-20 08:12] LABS: ABSOLUTE BASOPHIL COUNT 0.1 /CUMM (0.0-0.2); ABSOLUTE EOSINOPHIL COUNT 0.2 /CUMM (0.0-0.7); ABSOLUTE GRANULOCYTE CT 3.3 /CUMM (1.4-6.5); ABSOLUTE LYMPH COUNT 1.9 /CUMM (1.2-3.4); ABSOLUTE MONOCYTE COUNT 0.4 /CUMM (0.10-0.60); BASOPHIL % 1.1 % (0.0-2.0); EOSINOPHIL % 3.2 % (0-5); GRANULOCYTE % 56.2 % (42.2-75.2); HEMATOCRIT 37.3 % (37-47); MEAN CORPUSCULAR HGB CONC 32.8 G/DL (33.0-37.0); MEAN CORPUSCULAR VOLUME 79.2 FL (81.0-99.0); MEAN PLATELET VOLUME 8.9 FL (7.4-10.4); PLATELET COUNT 231 /CUMM (130-400); RBC DISTRIBUTION WIDTH 17.3 % (11.5-14.5); RED BLOOD CELL CT 4.71 /CUMM (4.20-5.40); WHITE BLOOD CELL COUNT 5.9 /CUMM (4.8-10.8)
[2016-10-20 08:24] LABS: PTT 64 SEC (25-37)
--- NOTE | 2016-10-20 09:16 | Patient Discharge Instructions ---
Discharge Instructions General Discharge Information You were seen/treated for: chest pain Special Instructions: please f/u with your cardologist after discharge. Diet Continue normal diet: No Recommended Diet: Heart Healthy Activity Full Activity/No Limits: Yes (as tolerated) Acute Coronary Syndrome Inclusion Criteria At DC or during hospital stay patient has or had the following: ACS DIAGNOSIS Yes Discharge Core Measures Meds if any: Prescribed or Continued at Discharge Meds if any: NOT Prescribed or Continued at Discharge Congestive Heart Failure Inclusion Criteria At DC or during hospital stay patient has or had the following: CHF DIAGNOSIS No Discharge Core Measures Meds if any: Prescribed or Continued at Discharge Meds if any: NOT Prescribed or Continued at Discharge Cerebrovascular accident Inclusion Criteria At DC or during hospital stay patient has or had the following: CVA/TIA Diagnosis No Discharge Core Measures Meds if any: Prescribed or Continued at Discharge Meds if any: NOT Prescribed or Continued at Discharge Venous thromboembolism Inclusion Criteria VTE Diagnosis No VTE Type NONE VTE Confirmed by (Test) NONE Discharge Core Measures - Per Current guidelines, there needs to be overlap - treatment for the first 5 days of Warfarin therapy. - If discharged on Warfarin prior to 5 days of - overlap therapy, the patient will need to be - assessed for post discharge needs including - *Post discharge parental anticoagulation - *Warfarin and/or parental anticoagulation education - *Follow up date to check INR post discharge At least 5 days overlap therapy as Inpatient No Meds if any: Prescribed or Continued at Discharge Note: Overlap Therapy is Warfarin and Anticoagulant Meds if any: NOT Prescribed or Continued at Discharge
[2016-10-20] MEDS ORDERED: BRILINTA90 M1 PO (09:20)
[2016-10-20] MEDS ORDERED: HEPARIN NS IV (09:20)
[2016-10-20] MEDS ORDERED: ATORVASTATIN CA80 M1 PO (09:20)
[2016-10-20] MEDS ORDERED: [UNRECOGNIZED DRUG - OTHER] IV (09:20)
[2016-10-20] MEDS ORDERED: ASPIRIN81 M4 PO (09:20)
[2016-10-20] MEDS ORDERED: METOPROLOL SUCC25 M1 PO (09:20)
--- NOTE | 2016-10-20 09:20 | PN- Cardiology ---
Subjective Subjective: The patient is feeling well. She has actually been ambulatory. She remains on IV heparin. She is reluctant to have cardiac catheterization but is willing to have it if it were absolutely necessary. Her troponin peaked at 3.63. Her EKG remains normal. Her LDL is elevated at 142. She's had occasional PVCs on the monitor. She has been started on Brilinta and remains on heparin and aspirin. Objective Vital Signs and I&Os Vital Signs Date Time Temp Pulse Resp B/P B/P Pulse O2 O2 Flow FiO2 Mean Ox Delivery Rate 10/20 0720 97.8 77 18 102/78 98 Room Air 07 2221 98.3 66 16 98/66 98 Room Air 07/ 2215 68 98/66 07/ 1633 74 130/78 / 1631 75 130/78 / 1403 98.3 82 20 146/78 97 Room Air / 1200 97.8 74 16 146/79 98 Room Air / 0936 97.5 71 16 125/65 98 Room Air Intake & Output 10/20 1600 10/20 0800 10/20 0000 10/19 1600 10/19 0800 10/19 0000 Intake Total 0 Output Total Balance 0 Intake, Oral 0 Patient 124 lb 155 lb Weight Weight Reported by Patient Reported by Patient Measurement Method Physical Exam: She is in no distress HEENT exam normal Chest clear Heart regular rhythm no murmurs Current Medications: Current Medications Sig/Ileana Start time Last Medication Dose Route Stop Time Status Admin Acetaminophen 650 MG Q6P PRN 10/19 1430 AC PO Ascorbic Acid 500 MG BID 10/19 2200 AC 10/19 PO 2206 Aspirin 81 MG DAILY 10/20 1000 AC PO Atorvastatin Calcium 80 MG DAILY 10/20 1000 AC PO Calcium/Vitamin D 500 MG DAILY 10/19 1417 AC PO Cyanocobalamin 1,000 MCG DAILY 10/19 1359 AC PO Diphenhydramine HCl 25 MG DAILY NEEDED PRN 10/19 1430 AC PO Fluoxetine HCl 20 MG DAILY 10/19 1347 AC PO Fluticasone 2 SPRAY DAILY PRN 10/19 1845 AC 10/19 Propionate ALYSON 1905 Heparin Sodium 4,000 UNIT ONCE ONE 10/19 1045 DC 10/19 (Porcine) IV 10/19 1046 1049 Heparin Sodium 0 .STK-MED ONE 10/19 1045 DC (Porcine) .ROUTE Heparin Sodium/ 25,000 UNIT Q24H 10/19 1045 AC 10/19 Dextrose IV 1049 Dextrose/Water 500 ML Lorazepam 2 MG TIDPRN PRN 10/19 1415 AC 10/19 PO 1813 Metoprolol Tartrate 6.25 MG BID 10/19 1506 AC 10/19 PO 2215 Multivitamins 1 TAB DAILY 10/20 1000 AC PO Ticagrelor 90 MG 1800 10/20 1800 AC PO Ticagrelor 90 MG 0600 10/20 0600 AC 10/20 PO 0619 Ticagrelor 180 MG ONCE ONE 10/19 1515 DC 10/19 PO 10/19 1516 1609 Tramadol HCl 50 MG Q6P PRN 10/19 1400 AC 10/20 PO 0628 Zolpidem Tartrate 15 MG AT BEDTIME PRN 10/19 1415 AC PO Results Last 48 Hrs of Labs/Mics: Laboratory Tests 10/20/16 0620: Anion Gap 7, Estimated GFR > 60, BUN/Creatinine Ratio 13.3, Troponin I 1.58 *H, Triglycerides 136, Cholesterol 225 H, LDL Cholesterol, Calc 142 H, HDL Cholesterol 56, Cholesterol/HDL Ratio 4, APTT 64 H, CBC w Diff NO MAN DIFF REQ, RBC 4.71, MCV 79.2 L, MCH 26.0 L, RDW 17.3 H, MPV 8.9, Gran % 56.2, Lymphocytes % 32.4, Monocytes % 7.1, Eosinophils % 3.2, Basophils % 1.1, Absolute Granulocytes 3.3, Absolute Lymphocytes 1.9, Absolute Monocytes 0.4, Absolute Eosinophils 0.2, Absolute Basophils 0.1, PUBS MCHC 32.8 L 10/19/16 2035: Troponin I 3.62 *H 10/19/16 1845: APTT 67 H 10/19/16 1425: Troponin I 3.63 *H 10/19/16 1040: Urine Opiates Screen 162.00, Methadone Screen 82, Barbiturate Screen < 60, Ur Phencyclidine Scrn 15.00, Amphetamines Screen < 100, U Benzodiazepines Scrn < 85 , Urine Cocaine Screen < 50, Urine Cannabis Screen < 5.00, Urine Color YEL, Urine Clarity CLEAR, Urine pH 7.5, Ur Specific [place] <= 1.005, Urine Protein NEG, Urine Ketones NEG, Urine Nitrite NEG, Urine Bilirubin NEG, Urine Urobilinogen 0.2, Ur Leukocyte Esterase NEG, Ur Microscopic EXAM NOT REQUIRED, Urine Hemoglobin NEG, Urine Glucose NEG, Urine Test NEGATIVE 10/19/16 0732: Anion Gap 8, Estimated GFR > 60, BUN/Creatinine Ratio 10.0, Glucose 101 H, Hemoglobin A1c Pending, Calcium 9.9, Magnesium 1.9, Total Bilirubin 0.4, AST 20, ALT 37, Alkaline Phosphatase 80, Troponin I 0.13 *H, Total Protein 7.5, Albumin 4.8, Globulin 2.7, Albumin/Globulin Ratio 1.8, TSH 1.670, Free T4 1.00, Total Beta HCG NEGATIVE, PT 12.2, INR 1.16, APTT 31, D-Dimer High Sensitivty < 200, CBC w Diff NO MAN DIFF REQ, RBC 4.92, MCV 80.0 L, MCH 25.7 L, RDW 17.1 H, MPV 8.4, Gran % 62.6, Lymphocytes % 28.7, Monocytes % 5.8, Eosinophils % 2.0, Basophils % 0.9, Absolute Granulocytes 4.1, Absolute Lymphocytes 1.9, Absolute Monocytes 0.4, Absolute Eosinophils 0.1, Absolute Basophils 0.1, PUBS MCHC 32.1 L, Serum Alcohol < 10.0 Recent Imaging Studies: CONCLUSIONS No significant chamber abnormalities. No significant valve abnormalities. Normal transthoracic echocardiogram. Physiologic valvular regurgitation. Alexei Dent M.D. (Electronically Signed) Final Date: 19 October 2016 13:26 Assessment/Plan Assessment/Plan This patient has had a non-ST elevation myocardial infarction manifested by typical chest pain and typical troponin curve. Despite this her EKG and echocardiogram are normal. She has minimal risk factors probably the major one being previous morbid obesity, status post gastric bypass. She also has an elevated LDL of 142. Although the patient is reluctant to have cardiac catheterization done, I have convinced her that this is absolutely necessary to clarify her coronary anatomy. It is conceivable that she might have coronary artery anomaly as opposed to routine arteriosclerotic coronary artery disease, although the latter is still most likely. She has been arranged to be transferred to [facility] care of Dr. Tamayo. Continue telemetry? Not applicable
[2016-10-20 09:26] VITALS: BP 116/70
== END 2016-10-20 11:34 | disposition short-term general hospital (02) | DRG 281 ==
LOC: ERH 06:50 → ERHI 10:21 → 1NO 10:21 → ENRESERV 11:00 → ENTRNSPT 12:46 → 1NO 13:48 → CMPTRNSPT 10-20 07:01 → 1NO 10-20 11:34
PROVIDERS: Internal Medicine; ADMIT Internal Medicine
DX: I21.4 Non-ST elevation (NSTEMI) myocardial infarction (principal); K91.2 Postsurgical malabsorption, not elsewhere classified; F41.0 Panic disorder [episodic paroxysmal anxiety]; Z98.84 Bariatric surgery status; Q65.89 Other specified congenital deformities of hip; G89.29 Other chronic pain; M25.559 Pain in unspecified hip; F43.10 Post-traumatic stress disorder, unspecified; Z79.899 Other long term (current) drug therapy; E53.8 Deficiency of other specified B group vitamins; K21.9 Gastro-esophageal reflux disease without esophagitis; G47.33 Obstructive sleep apnea (adult) (pediatric); R63.0 Anorexia; Z68.24 Body mass index [BMI] 24.0-24.9, adult
CPT/HCPCS: 1NP; 36415; 80307; 81003; 81025; 82436; 93005; 93010; 93306; G0480; J1644; J3490; J7060

== ENCOUNTER 2017-08-20 11:15 | Emergency (ER) | payer OTHER ==
[~2017-08-20] VITALS: Ht 152.4 cm; Wt 74.5 kg
[~2017-08-20 11:15] MED LIST changes: +ASPIRIN81 M4 PO; +ATORVASTATIN CA80 M1 PO; +BRILINTA90 M1 PO; +HEPARIN NS IV; +LORAZEPAM1 M1 PO; +METOPROLOL SUCC25 M1 PO; +PROZAC20 M2 PO; +TRAMADOL HCL50 M1 PO; +VITAMIN D31000 UNI2 PO; +ZOLPIDEM TARTRA10 M1 PO; +ZOLPIDEM TARTRAT5 M1 PO; -[UNRECOGNIZED DRUG - CODE] PO; +[UNRECOGNIZED DRUG - OTHER] IV
--- NOTE | 2017-08-20 11:54 | ED GENERAL ADULT ---
History of Present Illness General Chief Complaint: Abdominal Pain/Flank Pain Stated Complaint: R SIDED ABD PAIN Source: patient Exam Limitations: no limitations Vital Signs & Intake/Output Vital Signs & Intake/Output Vital Signs Date Time Temp Pulse Resp B/P B/P Pulse O2 O2 Flow FiO2 Mean Ox Delivery Rate 08/20 1612 98.0 51 18 100/60 97 Room Air 08/20 1454 97.4 60 18 102/57 98 Room Air 08/20 1131 97.7 80 18 106/69 98 Room Air Allergies Coded Allergies: NSAIDS (Non-Steroidal Anti-Inflamma (ULCERS 10/19/16) Reconcile Medications Aspirin (Aspirin*) 81 MG TAB.CHEW 81 MG PO DAILY heart health Cholecalciferol (Vitamin D3) 1,000 UNIT TABLET 1 TAB PO DAILY VITAMIN SUPPORT (Reported) Fluvoxamine Maleate 100 MG TABLET 2 TAB PO QPM MENTAL HEALTH (Reported) Levocetirizine Dihydrochloride (Xyzal) 5 MG TABLET 1 TAB PO QPM ALLERGIES ( Reported) Lorazepam 1 MG TABLET 4 TAB PO QPM SLEEP (Reported) Metoprolol Tartrate 25 MG TABLET 0.5 TAB PO QPM HEART (Reported) Tramadol HCl 50 MG TABLET 1 TAB PO Q6P PRN PAIN (Reported) Zolpidem Tartrate 5 MG TABLET 1 TAB PO QPMP PRN SLEEP (Reported) Zolpidem Tartrate 10 MG TABLET 1 TAB PO QPMP PRN SLEEP (Reported) Triage Note: PT TO ER C/C RLQ PAIN X 2 WEEKS, STARTED OUT DULL, NOW GETTING WORSE. DENIES N/V/D. DENIES URINARY S/S. AFEBRILE Triage Nurses Notes Reviewed? yes Onset: Abrupt Duration: day(s): Timing: recent history : No Patient currently breastfeeds: No HPI: 08/20/17 4:07 PM 42-year-old female presents to the emergency department complaining of right lower quadrant abdominal pain. She says she was in her usual state of health until approximately 3 days ago when she developed progressive right lower quadrant abdominal pain. She denies vomiting or fever. She was concerned about her appendix. She has a history of hip dysplasia. She says that this pain is different. She denies any possibility of . Labs and CT scan are unremarkable. I specifically reviewed the CAT scan results with the radiologist. No evidence of ovarian inflammation, free fluid or ovarian torsion. The patient is presently comfortable in the emergency department at 4: 08 PM. She is therefore being discharged to follow-up with her primary care doctor this week. Past History Travel History Traveled to [place] past 21 day No Medical History Any Pertinent Medical History? 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 No Review of Systems Review of Systems Constitutional: Denies: fever. EENTM: Denies: double vision. Respiratory: Denies: short of breath. Cardiovascular: Denies: chest pain. GI: Reports: abdominal pain. Genitourinary: Reports: no symptoms. Musculoskeletal: Reports: no symptoms. Skin: Reports: no symptoms. Neurological/Psychological: Denies: no symptoms. Hematologic/Endocrine: Reports: no symptoms. Immunologic/Allergic: Reports: no symptoms. Physical Exam Physical Exam General Appearance: well developed/nourished, alert, awake, anxious, mild distress Head: atraumatic, normal appearance Eyes: Bilateral: normal appearance, PERRL, EOMI. Ears, Nose, Throat: normal pharynx, normal ENT inspection Neck: normal inspection, supple, full range of motion Respiratory: normal breath sounds, chest non-tender, no respiratory distress Cardiovascular: regular rate/rhythm Peripheral Pulses: 4+ radial (R), 4+ radial (L) Gastrointestinal: soft, tenderness Back: normal inspection Extremities: normal inspection Neurologic/Psych: no motor/sensory deficits, awake, alert, oriented x 3 Skin: intact, normal color, warm/dry Core Measures ACS in differential dx? No CVA/TIA Diagnosis: No Sepsis Present: No Sepsis Focused Exam Completed? No Progress Differential Diagnoses I considered the following diagnoses in my evaluation of the patient: [ Appendicitis, ovarian cyst, ovarian torsion, colitis, pyelonephritis, ureterolithiasis] Plan of Care: Orders Procedure Date/time Status COMPREHENSIVE METABOLIC PANEL 08/20 1214 Complete CBC WITHOUT DIFFERENTIAL 08/20 1214 Complete URINE 08/20 1132 Complete URINALYSIS 08/20 113 Complete Laboratory Tests 08/20/17 1247: Anion Gap 8, Estimated GFR > 60, BUN/Creatinine Ratio 22.9, Glucose 86, Calcium 9.2, Total Bilirubin 0.3, AST 31, ALT 23, Alkaline Phosphatase 61, Total Protein 6.4, Albumin 3.8, Globulin 2.6, Albumin/Globulin Ratio 1.5, CBC w Diff NO MAN DIFF REQ, RBC 4.24, MCV 80.8 L, MCH 27.1, MCHC 33.5, RDW 16.1 H, MPV 8.3, Gran % 41.2 L, Lymphocytes % 42.8, Monocytes % 11.5 H, Eosinophils % 3.1, Basophils % 1.4, Absolute Granulocytes 3.3, Absolute Lymphocytes 3.4, Absolute Monocytes 0.9 H, Absolute Eosinophils 0.2, Absolute Basophils 0.1 08/20/17 1158: Urine Color STRAW, Urine Clarity HAZY H, Urine pH 6.0, Ur Specific [place] 1.020, Urine Protein NEG, Urine Ketones NEG, Urine Nitrite NEG, Urine Bilirubin NEG, Urine Urobilinogen 0.2, Ur Leukocyte Esterase TRACE H, Ur Microscopic SEDIMENT EXAMINED, Urine WBC RARE, Ur Epithelial Cells FEW, Urine Bacteria RARE H, Urine Hemoglobin NEG, Urine Glucose NEG, Urine Test NEGATIVE Initial ED EKG: none Departure Departure Disposition: STILL A PATIENT Condition: Stable Clinical Impression Primary Impression: Abdominal pain Referrals: Leonila Walker (PCP/Family) Departure Forms: Customer Survey General Discharge Information Comments PATIENT: RM GARCIA PRESENT AGE: 42 PATIENT ACCOUNT NO: [id number] : 75 LOCATION: [facility] ORDERING PHYSICIAN: Alexander Manning DO SERVICE DATE: 08/20/17-1220 EXAM TYPE: CAT - CT ABD & PELVIS W ORAL & IV CO EXAMINATION: CT ABDOMEN AND PELVIS WITH CONTRAST CLINICAL INFORMATION: Right lower quadrant pain status post gastric bypass 2011. Evaluate for appendicitis. COMPARISON: CTA of the chest 10/19/2016. TECHNIQUE: Multidetector volumetric imaging was performed of the abdomen and pelvis following IV administration of 95 mL of Optiray 320 intravenous contrast and oral administration of 900 mL of Redicat 2. Sagittal and coronal reformatted images were obtained on the technologist's workstation. DLP: 415.95 mGy-cm FINDINGS: LUNG BASES: The visualized lung bases are unremarkable. LIVER, GALLBLADDER, AND BILIARY TREE: The liver is normal in size, shape, and attenuation. No focal hepatic lesion or biliary ductal dilatation is present. The gallbladder is surgically absent. PANCREAS: Unremarkable. SPLEEN: Unremarkable. ADRENAL GLANDS: Unremarkable. KIDNEYS AND URETERS: The kidneys are normal in size, shape, and attenuation. No hydronephrosis, hydroureter, or calculi seen. No perinephric stranding. BLADDER: Unremarkable. GASTROINTESTINAL TRACT: There are gastric bypass changes again noted. There is a moderately large amount of stool throughout the colon. The small and large bowel are otherwise unremarkable. The appendix is normal. ABDOMINAL WALL: No significant hernia is appreciated. LYMPH NODES: Normal. VASCULAR: Unremarkable. PELVIC VISCERA: Unremarkable. OSSEOUS STRUCTURES: There is moderate degenerative disc disease at L4-L5. The osseous structures are otherwise unremarkable. IMPRESSION: 1. Moderately large amount of stool throughout the colon. 2. Normal appendix. 3. No other evidence of inflammatory process in the abdomen or pelvis. DICTATED BY: Red Wilks MD DATE/TIME DICTATED:08/20/171516 RETAIL FIELD SUPERVISOR:DAYA DATE/TIME TRANSCRIBED:08/20/171516 CONFIDENTIAL, DO NOT COPY WITHOUT APPROPRIATE AUTHORIZATION. <Electronically signed in Other Vendor System> SIGNED BY: Red Wilks MD [id number] Critical Care Note Critical Care Note Critical Care Time: non-applicable
[2017-08-20] MEDS ORDERED: METOPROLOL TART25 M1 PO (11:58)
[2017-08-20] MEDS ORDERED: XYZAL5 M1 PO (11:59)
[2017-08-20] MEDS ORDERED: FLUVOXAMINE MA100 M2 PO (11:59)
[2017-08-20 13:16] LABS: ABSOLUTE BASOPHIL COUNT 0.1 /CUMM (0.0-0.2); ABSOLUTE EOSINOPHIL COUNT 0.2 /CUMM (0.0-0.7); ABSOLUTE GRANULOCYTE CT 3.3 /CUMM (1.4-6.5); ABSOLUTE LYMPH COUNT 3.4 /CUMM (1.2-3.4); ABSOLUTE MONOCYTE COUNT 0.9 /CUMM (0.10-0.60); BASOPHIL % 1.4 % (0.0-2.0); EOSINOPHIL % 3.1 % (0-5); GRANULOCYTE % 41.2 % (42.2-75.2); HEMATOCRIT 34.3 % (37-47); MEAN CORPUSCULAR HGB 27.1 PG (27.0-31.0); MEAN CORPUSCULAR HGB CONC 33.5 G/DL (33.0-37.0); MEAN CORPUSCULAR VOLUME 80.8 FL (81.0-99.0); MEAN PLATELET VOLUME 8.3 FL (7.4-10.4); PLATELET COUNT 203 /CUMM (130-400); RBC DISTRIBUTION WIDTH 16.1 % (11.5-14.5); RED BLOOD CELL CT 4.24 /CUMM (4.20-5.40); WHITE BLOOD CELL COUNT 7.9 /CUMM (4.8-10.8)
--- NOTE | 2017-08-20 15:51 | CT SCAN REPORT ---
EXAMINATION: CT ABDOMEN AND PELVIS WITH CONTRAST CLINICAL INFORMATION: Right lower quadrant pain status post gastric bypass 2011. Evaluate for appendicitis. COMPARISON: CTA of the chest 10/19/2016. TECHNIQUE: Multidetector volumetric imaging was performed of the abdomen and pelvis following IV administration of 95 mL of Optiray 320 intravenous contrast and oral administration of 900 mL of Redicat 2. Sagittal and coronal reformatted images were obtained on the technologist's workstation. DLP: 415.95 mGy-cm FINDINGS: LUNG BASES: The visualized lung bases are unremarkable. LIVER, GALLBLADDER, AND BILIARY TREE: The liver is normal in size, shape, and attenuation. No focal hepatic lesion or biliary ductal dilatation is present. The gallbladder is surgically absent. PANCREAS: Unremarkable. SPLEEN: Unremarkable. ADRENAL GLANDS: Unremarkable. KIDNEYS AND URETERS: The kidneys are normal in size, shape, and attenuation. No hydronephrosis, hydroureter, or calculi seen. No perinephric stranding. BLADDER: Unremarkable. GASTROINTESTINAL TRACT: There are gastric bypass changes again noted. There is a moderately large amount of stool throughout the colon. The small and large bowel are otherwise unremarkable. The appendix is normal. ABDOMINAL WALL: No significant hernia is appreciated. LYMPH NODES: Normal. VASCULAR: Unremarkable. PELVIC VISCERA: Unremarkable. OSSEOUS STRUCTURES: There is moderate degenerative disc disease at L4-L5. The osseous structures are otherwise unremarkable. IMPRESSION: 1. Moderately large amount of stool throughout the colon. 2. Normal appendix. 3. No other evidence of inflammatory process in the abdomen or pelvis.
[2017-08-20 16:12] VITALS: BP 100/60
== END 2017-08-20 16:31 ==
LOC: ERH 11:15
PROVIDERS: Emergency Medicine
DX: R10.31 Right lower quadrant pain (principal)
CPT/HCPCS: 74177; 81001; 81025; 96361; 96374; J0131; J7040

== ENCOUNTER 2017-11-12 20:04 | Emergency (ER) | payer OTHER ==
[~2017-11-12 20:04] MED LIST changes: +FLUVOXAMINE MA100 M2 PO; +METOPROLOL TART25 M1 PO; +XYZAL5 M1 PO
[2017-11-12 20:15] VITALS: BP 139/84
[2017-11-12 20:30] LABS: ABSOLUTE BASOPHIL COUNT 0.1 /CUMM (0.0-0.2); ABSOLUTE EOSINOPHIL COUNT 0.1 /CUMM (0.0-0.7); ABSOLUTE GRANULOCYTE CT 4.9 /CUMM (1.4-6.5); ABSOLUTE LYMPH COUNT 3.8 /CUMM (1.2-3.4); ABSOLUTE MONOCYTE COUNT 0.7 /CUMM (0.10-0.60); EOSINOPHIL % 1.1 % (0-5); GRANULOCYTE % 50.9 % (42.2-75.2); HEMATOCRIT 38.3 % (37-47); MEAN CORPUSCULAR HGB 25.2 PG (27.0-31.0); MEAN CORPUSCULAR HGB CONC 32.1 G/DL (33.0-37.0); MEAN CORPUSCULAR VOLUME 78.5 FL (81.0-99.0); PLATELET COUNT 373 /CUMM (130-400); RBC DISTRIBUTION WIDTH 15.5 % (11.5-14.5); RED BLOOD CELL CT 4.89 /CUMM (4.20-5.40); WHITE BLOOD CELL COUNT 9.6 /CUMM (4.8-10.8)
== END 2017-11-12 20:22 | disposition admitted as inpatient to this hospital (09) ==
LOC: ERH 20:04
PROVIDERS: Emergency Medicine
DX: R07.9 Chest pain, unspecified (principal)
CPT/HCPCS: 93005; 93010; 99281